=== PATIENT | female | born 1985 | race American Indian/Alaskan Native ===

== ENCOUNTER 2017-08-07 12:43 | Emergency (ER) | payer MEDICAID ==
[2017-08-07 12:51] VITALS: O2SAT 100
--- NOTE | 2017-08-07 14:02 | C.PDOC ---
History Of Present Illness <ArthurNorma Stephens - Last Filed: 08/07/17 14:36> <Pietro Crisostomo - Last Filed: 08/07/17 14:58> Patient is a 32 year old with past medical history of asthma; LMP May 2017, who found out she was July [id number], who presents to the ED with complaints of body aches that started last night and productive cough with greenish-yellowish phlegm that has been on going for a week. Patient also admits to abdominal pressure that is exacerbated with coughing. Patient denies any radiation of abdominal pressure, fever, nausea, vomiting, vaginal bleeding or abnormal vaginal discharge shortness of breath. Patient does admits to sick contact (her 11 year old son and 4 months old son). chest discomfort with cough. (Norma Gibson) History Per: Patient History/Exam Limitations: no limitations Onset/Duration Of Symptoms: Days Current Symptoms Are (Timing): Still Present Severity: Mild Pain Scale Rating Of: 3 Location: Diffuse abdominal pressure exacerbated with cough Recent travel outside of the [place]: No Additional History Per: Patient <ArthurNorma Stephens - Last Filed: 08/07/17 14:36> <Pietro Crisostomo - Last Filed: 08/07/17 14:58> Time Seen by Provider: 08/07/17 13:22 Chief Complaint (Nursing): Abdominal Pain Past Medical History - Medical History PMH: Asthma, Kidney Stones, Migraine Other Surgeries: Umbilical hernia repair Family History: States: Hypertension - Social History Hx Tobacco Use: Yes (Last smoked >1 yr ago ) Hx Alcohol Use: Yes (social) Hx Substance Use: Yes (Last used Marijuana> 1 yr ago ) - Immunization History Hx Tetanus Toxoid Vaccination: No Hx Influenza Vaccination: No Hx Pneumococcal Vaccination: No <ArthurNorma Stephens - Last Filed: 08/07/17 14:36> Vital Signs: Last Vital Signs Temp 97.5 F L 08/07/17 12:48 Pulse 89 08/07/17 12:48 Resp 20 08/07/17 12:48 BP 109/72 08/07/17 12:48 Pulse Ox 100 08/07/17 14:53 - [facility] Procedures FLUOROSCOPY L UP EXTREM VEIN W L OSM CONTRAST, GUIDANCE (01/09/17) INSERTION OF INFUSION DEV INTO SUP VENA CAVA, PERC APPROACH (06/03/16) ULTRASONOGRAPHY OF LEFT UPPER EXTREMITY VEINS, GUIDANCE (06/03/16) Review Of Systems Constitutional: Positive for: Chills, Malaise. Negative for: Fever Eyes: Negative for: Pain, Vision Change ENT: Positive for: Nose Congestion. Negative for: Ear Pain, Ear Discharge Cardiovascular: Positive for: Chest Pain (Chest discomfort with cough ). Negative for: Palpitations, Edema, Light Headedness Respiratory: Positive for: Cough, Shortness of Breath. Negative for: Hemoptysis , Pleuritic Pain, Sputum, Wheezing, Other Gastrointestinal: Positive for: Nausea Genitourinary: Negative for: Dysuria, Frequency, Hematuria, Vaginal Discharge, Vaginal Bleeding, Pelvic Pain Musculoskeletal: Positive for: Other (Generaloized body ache ) Neurological: Negative for: Weakness, Confusion, Dizziness <Norma Gibson E - Last Filed: 08/07/17 14:36> Physical Exam - Physical Exam Appears: No Acute Distress Skin: Normal Color Head: Atraumatic, Normacephalic Eye(s): bilateral: Normal Inspection, PERRL, EOMI Ear(s): Bilateral: Normal Nose: Normal, No Discharge, No Epistaxis, No Deformity, No Tenderness Oral Mucosa: Moist Tongue: Normal Appearing, No Laceration, No Erythema Lips: Normal Appearing, No Laceration, No Lesions Teeth: Normal Dentition Throat: Normal, No Erythema, No Exudate, No Drooling Neck: Normal, No Midline Cervical Tenderness, No Paracervical Tenderness Chest: Symmetrical, No Deformity, No Tenderness Cardiovascular: Rhythm Regular, No Murmur Respiratory: Normal Breath Sounds, No Decreased Breath Sounds, No Accessory Muscle Use, No Stridor, No Wheezing Gastrointestinal/Abdominal: Bowel Sounds, Soft, No Tenderness, No Mass Back: No CVA Tenderness Extremity: Normal ROM, No Tenderness, No Calf Tenderness Extremity: Bilateral: Atraumatic Neurological/Psych: Oriented x3, Normal Speech Gait: Steady <Norma Gibson - Last Filed: 08/07/17 14:36> ED Course And Treatment O2 Sat by Pulse Oximetry: 100 <Norma Gibson E - Last Filed: 08/07/17 14:36> Disposition Discussed With : Pietro Crisostomo <Norma Gibson - Last Filed: 08/07/17 14:36> - Disposition Disposition Time: 14:55 <Pietro Crisostomo M - Last Filed: 08/07/17 14:58> - Disposition Referrals: Luther Burleson MD [Staff Provider] - Disposition: HOME/ ROUTINE Condition: GOOD Additional Instructions: Please discharge patient home Please take Azithromycin 250mg PO for 4 days, 1 tablet once daily Please use Ventolin 1 puff Q4H for severe shortness of breath Please continue to hydrate yourself Please follow with your [facility] in [place] for care Please continue to follow up care with your PMD Please return to the hospital if symptoms worsens Prescriptions: Albuterol HFA [Ventolin HFA 90 mcg/actuation (8 g)] 1 puff IH Q4H PRN #1 inhaler PRN Reason: Shortness Of Breath Azithromycin 250 mg PO DAILY 4 Days #4 tablet Nitrofurantoin Macrocrystals [Macrobid] 100 mg PO BID #14 cap Instructions: Acute Bronchitis, Urinary Tract Infection, Adult (DC), Screenings Forms: [email or web address] ([place]), General Discharge Instructions - Clinical Impression Clinical Impression: Upper respiratory infection, Cough, Bronchitis, UTI (urinary tract infection)
[2017-08-07] MEDS ORDERED: Albuterol 0.083% Inhal Sol (2.5 mg/3 mL) UD INH STA (14:18)
[2017-08-07] MEDS ORDERED: Albuterol 0.083% Inhal Sol (2.5 mg/3 mL) UD ONE (14:35)
[2017-08-07 14:42] LABS: SQUAMOUS EPITHIAL 14 /hpf (0-5); URINE BACTERIA RARE (<OCC); URINE BILIRUBIN NEGATIVE (NEGATIVE); URINE BLOOD NEGATIVE (NEGATIVE); URINE CLARITY Hazy (Clear); URINE COLOR Yellow (YELLOW); URINE GLUCOSE (UA) NORMAL (Normal); URINE LEUKOCYTE ESTERASE 2+ Leu/uL (Negative); URINE PROTEIN 1+ mg/dL (NEGATIVE)
[2017-08-07 15:35] VITALS: BP 119/74; PULSE 73; RESP 18; TEMP 98.8
== END 2017-08-07 15:41 | disposition home or self-care (01) ==
LOC: C.ER 12:43
DX: O26.899 Other specified pregnancy related conditions, unspecified trimester (principal); J40 Bronchitis, not specified as acute or chronic; J06.9 Acute upper respiratory infection, unspecified; R05 Cough; O23.40 Unspecified infection of urinary tract in pregnancy, unspecified trimester; Z3A.00 Weeks of gestation of pregnancy not specified

== ENCOUNTER 2017-11-29 16:34 | Emergency (ER) | payer MEDICAID ==
[2017-11-29 16:57] VITALS: BMI 30.9
--- NOTE | 2017-11-29 17:52 | OBHP ---
Datetime: 11/29/2017 17:44 IP Adm Impression: , intrauterine IP Admit Plan: Observation/Evaluation Admit Comment, IP Provider: Pt presented to [facility] with c/o s/p fall on 11/26/17. She has no c/o vb,lof o r ctx since the fall. She thisnk she maybe leaking or having discharge that she is not sure. She was evaluated at the [facility] after the fall and was told everything was ok. But the pt think that they did nothing for her. SSE: White discharge VE: Closed /Thick/High EFM: Cat 1 TOCO: No ctx A/P: 32 y/o at 28+ weeks s/p fall and r/o SROM R/O Abruption- Labs sent No SROM- Negative nitrazine US for MIGUEL ANGEL Observation Presentation-Admit: Vertex FHR - Baseline A Provider: 140 Membranes, Provider: Intact Contraction Comments Provider: None Comments, ACOG Physical Exam: SSE: No pooling, + normal discharge CX- closed/Thick and high Gestation - Est Wks by US: 28.0 Pool Provider: Negative Nitrazine Provider: Negative EGA AdmitDate IP: 25.5 IP Chief Complaint: Suspected ruptured membranes; Trauma/Fall NICHD Variability Prov Fetus A: Moderate 6-25bpm NICHD Accel Fetus A IP Provider: 10X10 FHR Category Provider Fetus A: Category I NICHD Decel Fetus A IP Provider: None Dilatation, Provider: 0 Effacement, Provider: 0 Station, Provider: -3
[2017-11-29 18:38] LABS: BASO % 0.4 % (0.0-2.0); EOS % 0.5 % (0.0-4.0); HEMOGLOBIN 8.6 g/dL (11.0-16.0); LYMPH # 2.5 K/uL (1.0-4.3); LYMPH % 24.4 % (20.0-40.0); MEAN CELL VOLUME 79.1 fL (81.0-99.0); MEAN CORPUSCULAR HEMOGLOBIN 25.7 pg (27.0-31.0); MEAN CORPUSCULAR HGB CONC 32.5 g/dL (33.0-37.0); MEAN PLATELET VOLUME 7.8 fL (7.2-11.7); MONO # 0.7 K/uL (0.0-0.8); MONO % 6.4 % (0.0-10.0); NEUT % 68.3 % (50.0-75.0); NRBC % 0.1 % (0.0-2.0); RBC 3.37 Mil/uL (3.80-5.20); RED CELL DISTRIBUTION WIDTH 14.6 % (11.5-14.5); WHITE BLOOD COUNT 10.2 K/uL (4.8-10.8)
[2017-11-29 18:51] LABS: ALB/GLOB RATIO 0.9 (1.0-2.1); ALBUMIN 3.2 g/dL (3.5-5.0); ALT/SGPT 17 U/L (9-52); AST/SGOT 19 U/L (14-36); BLOOD UREA NITROGEN 4 mg/dL (7-17); CALCIUM 8.7 mg/dl (8.6-10.4); GFR AFRICAN-AMERICAN > 60; GFR NON-AFRICAN AMERICAN > 60; URIC ACID 2.7 mg/dL (2.2-7.5)
[2017-11-29 18:52] LABS: INR 1.1; PROTHROMBIN TIME 11.8 SECONDS (9.7-12.2)
[2017-11-30 02:01] VITALS: BP 87/62; PULSE 85
--- NOTE | 2017-11-30 15:54 | US ---
PROCEDURE: Limited ultrasound HISTORY: S/P fall and Ruptures of membranes COMPARISON: None available. TECHNIQUE: Standard protocol for this study/examination. FINDINGS: Cephalic presentation. Posterior/fundal Placenta. No evidence of abruption or previa Gestational age derived from LMP 25 weeks 5 days. APOLONIA 03/09/2018.. Gestational age derived from the following biometric parameters twenty-eight weeks 2 days. APOLONIA 02/19/2018 Biparietal diameter 7.15 cm Head circumference 26.08 cm Abdominal circumference 23.56 cm Femur length 5.34 cm Estimated weight 1178 g Calculated cardiac rate 139 beats per min. Closed cervix measuring 3.78 cm IMPRESSION: Single live intrauterine gestation 28 weeks 2 days. Concordant results (preliminary interpretation) provided by [facility]. Procedure Completed: 18:21 Preliminary ([facility]) Report: Dictated and Authenticated: 19:27 Final Interpretation: 15:52July 2017.
== END 2017-11-29 19:55 | disposition home or self-care (01) ==
LOC: C.EROB 16:34
DX: O26.93 Pregnancy related conditions, unspecified, third trimester (principal); Z3A.28 28 weeks gestation of pregnancy; Z04.3 Encounter for examination and observation following other accident; W18.30XD Fall on same level, unspecified, subsequent encounter